=== PATIENT | female | born 1950 | race Caucasian/White ===

== ENCOUNTER → 2017-02-25 | Outpatient (CLI) | payer MEDICARE, OTHER | LOC: HEART 5 02-24 13:30 | DX: I73.9 Peripheral vascular disease, unspecified (principal) ==

== ENCOUNTER → 2021-04-23 | Outpatient (CLI) | payer MEDICARE, OTHER ==
[~2021-04-23] MED LIST: ALBUTEROL2.5 MG/3 M INH; CLARITIN10 MG PO; CYMBALTA 30 MG30 MG PO; ECOTRIN81 MG PO; FLAGYL500 MG PO; FLONASE 0.05% N16 GM; GABAPENTIN300 MG PO; HYDROCHLOROTHIA25 MG PO; HYDROCODON-ACE1 EAC6 PO; KLONOPIN TAB 00.5 MG PO; LOVAZA1 GM PO; PRAVASTATIN SOD10 MG PO; PROTONIX40 MG PO; SINGULAIR10 MG PO; TENORMIN 50 MG50 MG PO; VANCOMYCIN HCL125 MG PO; VITAMIN D31000 UNI1 PO
== END ==
LOC: EXRD 12:59
DX: M53.3 Sacrococcygeal disorders, not elsewhere classified (principal); G89.29 Other chronic pain
CPT/HCPCS: 72202